=== PATIENT | male | born 1985 | race African-American/Black ===

== ENCOUNTER 2017-07-26 06:03 | Emergency (ER) | payer MEDICAID ==
[~2017-07-26] VITALS: Ht 188 cm; Wt 93.0 kg
[~2017-07-26 06:03] MED LIST: DILANTIN; TEGRETOL
[2017-07-26] MEDS ORDERED: LORAZEPAM 2MG/ML CPJ IV ONE (06:30)
[2017-07-26 06:54] LABS: CLARITY URINE CLEAR (CLEAR); COLOR URINE YELLOW (YELLOW); KETONES URINE NEGATIVE (NEGATIVE); LEUKOCYTE ESTERASE URINE NEGATIVE (NEGATIVE); NITRITE URINE NEGATIVE (NEGATIVE); OCCULT BLOOD URINE TRACE (NEGATIVE); PH URINE 5.5 (4.5-8.0); PROTEIN URINE TRACE (NEGATIVE); SPECIFIC GRAVITY URINE 1.015 (1.005-1.030); UROBILINOGEN URINE 0.2 E.U./dL (0.2-1.0)
[2017-07-26 07:26] LABS: BASOPHILS % 0.5 % (0.0-2.0); EOSINOPHILS % 1.2 % (0.0-5.0); HEMOGLOBIN. 14.1 g/dL (14.0-18.0); LYMPHOCYTES % 25.3 % (20.0-50.0); MEAN CORPUSCULAR HEMOGLOBIN 31.3 pg (28.0-32.0); MEAN CORPUSCULAR VOLUME 93.6 fL (80.0-94.0); MEAN PLATELET VOLUME 8.3 fl (7.4-10.4); MONOCYTES % 11.5 % (2.0-8.0); NEUTROPHILS % 61.5 % (40.0-76.0); PLATELET 211 x1000/uL (130-400); RED BLOOD CELL COUNT 4.49 mill/uL (4.7-6.1); RED CELL DISTRIBUTION WIDTH 14.1 % (11.6-14.6)
[2017-07-26 07:30] LABS: CHLORIDE 110 mEq/L (98-107)
[2017-07-26 07:34] LABS: ETHANOL BLOOD < 10 mg/dL
[2017-07-26 07:37] LABS: CARBAMAZEPINE 7.6 ug/mL (4-12)
[2017-07-26 08:18] LABS: *AMPHETAMINES SCREEN URINE NEGATIVE (NEGATIVE); *BARBITURATES SCREEN URINE NEGATIVE (NEGATIVE); *BENZODIAZEPINES SCREEN URINE NEGATIVE (NEGATIVE); *COCAINE SCREEN URINE NEGATIVE (NEGATIVE)
[2017-07-26 08:19] LABS: CANNABINOID URINE SCREEN PRESUMTIVE POSITIVE (NEGATIVE); METHADONE URINE SCREEN NEGATIVE (NEGATIVE); OPIATES URINE SCREEN NEGATIVE (NEGATIVE); PHENCYCLIDINE URINE SCREEN NEGATIVE (NEGATIVE)
[2017-07-26] MEDS ORDERED: LEVETIRACETAM 500MG PREMIX 100 ML IV ONE (08:45)
[2017-07-26 10:46] VITALS: BP 138/81
== END 2017-07-26 10:52 | disposition home or self-care (01) ==
LOC: ER 06:03
DX: G40.409 Other generalized epilepsy and epileptic syndromes, not intractable, without status epilepticus (principal); F12.10 Cannabis abuse, uncomplicated; R94.31 Abnormal electrocardiogram [ECG] [EKG]
CPT/HCPCS: 36415; 80053; 80156; 80305; 81003; 82962; 83880; 84484; 85025; 93005; 96365; 96375; 99285; G0482; J1953; J2060; Z7610

== ENCOUNTER 2018-07-06 19:41 | Emergency (ER) | payer MEDICAID ==
[~2018-07-06] VITALS: Ht 185.4 cm; Wt 88.0 kg
[2018-07-06 20:17] VITALS: BP 114/67
== END 2018-07-06 21:05 | disposition left against medical advice (07) ==
LOC: ER 20:44
DX: R56.9 Unspecified convulsions (principal); Z53.21 Procedure and treatment not carried out due to patient leaving prior to being seen by health care provider

== ENCOUNTER 2024-09-20 15:44 | Emergency (ER) | payer MEDICAID ==
[~2024-09-20] VITALS: Ht 185.4 cm; Wt 82.0 kg
[2024-09-20 15:46] VITALS: TEMP 37.2; O2SAT 99
[2024-09-20 19:04] LABS: BASOPHILS % 0.1 % (0.0-2.0); HEMATOCRIT. 39.9 % (42.0-52.0); HEMOGLOBIN. 13.4 g/dL (14.0-18.0); LYMPHOCYTES % 16.4 % (20.0-50.0); MEAN CORPUSCULAR HEMOGLOBIN 31.9 pg (28.0-32.0); MEAN CORPUSCULAR HGB CONC 33.5 g/dL (31.0-37.0); MEAN CORPUSCULAR VOLUME 95.2 fL (80.0-94.0); MEAN PLATELET VOLUME 9.2 fl (7.4-10.4); NEUTROPHILS % 75.5 % (40.0-76.0); PLATELET 179 x1000/uL (130-400); RED BLOOD CELL COUNT 4.19 mill/uL (4.7-6.1); WHITE BLOOD COUNT 10.5 x1000/uL (4.5-11.0)
[2024-09-20 19:15] LABS: CALCIUM 9.4 mg/dL (8.7-10.4); CARBON DIOXIDE 26 mEq/L (21-32); CHLORIDE 108 mEq/L (98-107); POTASSIUM 4.1 mEq/L (3.5-5.1); SODIUM 142 mEq/L (136-145)
[2024-09-20] MEDS: CARBAMAZEPINE 200MG TABLET PO ONE (19:20)
[2024-09-20 19:21] LABS: CREATININE 1.1 mg/dL (0.6-1.3); GLUCOSE 112 mg/dL (70-105); UREA NITROGEN BLOOD 12 mg/dL (9-23)
[2024-09-20 19:24] VITALS: BP 166/104; PULSE 99; RESP 20; O2SAT 99
== END 2024-09-20 19:25 | disposition home or self-care (01) ==
LOC: ER 15:44
DX: G40.909 Epilepsy, unspecified, not intractable, without status epilepticus (principal); F12.10 Cannabis abuse, uncomplicated; I49.9 Cardiac arrhythmia, unspecified
CPT/HCPCS: 80048; 85025; 36415; 93005; 99284; Z7610 ×2; A4606